=== PATIENT | female | born 1960 | race African-American/Black ===

== ENCOUNTER 2016-12-11 14:31 | Emergency (ER) | payer MEDICAID ==
[~2016-12-11] VITALS: Ht 167.6 cm; Wt 82.5 kg
[2016-12-11] MEDS ORDERED: KETOROLAC 60MG/2ML VIAL IM ONE (16:00)
[2016-12-11 16:42] VITALS: BP 112/51
== END 2016-12-11 16:54 | disposition home or self-care (01) ==
LOC: ER 15:58
DX: M79.1 Myalgia (principal); V89.2XXA Person injured in unspecified motor-vehicle accident, traffic, initial encounter; Y93.89 Activity, other specified; Y92.89 Other specified places as the place of occurrence of the external cause; Y99.8 Other external cause status
CPT/HCPCS: 96372; 99283; J1885